=== PATIENT | male | born 1975 | race Caucasian/White ===

== ENCOUNTER 2023-04-04 11:16 | Observation (INO) ==
[2023-04-04] MEDS ORDERED: SODIUM CHLORIDE 0.9% 500 ML IV STA (11:30)
--- NOTE | 2023-04-04 11:40 | Emergency Department Note ---
Impression & Plan Acute lower GI bleeding ADMIT ED Provider Note HPI: The patient is a 48-year-old gentleman who presents the emergency department with a chief complaint of lower abdominal cramping and lightheadedness over the past several days. Patient states he had a colonoscopy on Thursday and he has had dark stools ever since. He states they did take several biopsies when he had his colonoscopy. On arrival here to the ED the patient is hemodynamically stable, he is in no acute distress on my initial assessment, he states just over about the past 2 hours he developed some lower abdominal pain bilaterally. He states he contacted the on-call gastroenterology service today and was advised to come to the emergency department to be evaluated for potential bleeding status post colonoscopy. Patient denies any chest pain or shortness of breath, he is otherwise well-appearing on my initial assessment, blood pressure is 102/67 on arrival. ROS: - Per HPI *Outpatient medications and allergy history reviewed. *Pertinent external medical records reviewed. PE: General: Alert HEENT: Normocephalic, trachea midline Eyes: Extraocular eye movement is intact, no scleral erythema Pulmonary: Clear to auscultation bilaterally, no wheezing Cardio: Regular rate and rhythm GI: Abdomen is soft to palpation, rectal examination performed at the bedside does not show any evidence of external hemorrhoids or gross bleeding, occult stool testing is positive : No suprapubic tenderness MSK: No evidence of trauma or malformation of the extremities, no edema Skin: No evidence of rash Neuro: Alert, no focal deficits Psychiatric: Cooperative laundromat manager: (As interpreted by myself): - An order was placed for continuous cardiac monitoring - Patient was noted to be in sinus rhythm with a rate of 80 EKG: (As interpreted by myself): Rate: 76 Rhythm: Normal sinus rhythm Intervals: Within normal limits ST changes: No ST elevation Time: 1409 Interventions provided in ED: -IV fluid bolus, IV Protonix drip and bolus Differential Diagnosis: Lower GI bleed, arrhythmia, bowel perforation status post colonoscopy, hemorrhage of biopsy site from esophagus, amongst other potential pathologies. Medical Decision Making: The patient is a 48-year-old gentleman who presented to the emergency department with variety of symptoms after undergoing colonoscopy on 04/01. On arrival here to the ED the patient is hemodynamically stable, he is currently in no acute dis tress. IV was established and lab work obtained, patient was maintained on flight engineer performance qualified. Patient was given IV fluid bolus, lab work results show leukocytosis with white blood cell count at 13.75, hemoglobin is low at 9.8, platelet count is within normal limits, CMP shows mild hyponatremia for which the patient was given IV fluids, BUN is also elevated at 32, lipase is within normal limits, otherwise no critical electrolyte abnormalities are noted. CT imaging of the abdomen pelvis was obtained that shows no evidence of bowel perforation, scattered air-fluid levels are noted throughout the small bowel consistent with physiologic state versus enteritis/illness. Occult stool testing was performed and is positive. Given the patient's anemia with occult positive stool, I did discuss case with on-call gastroenterology, Dr. Daniels, who recommends admission and GI consultation to determine whether or not the patient may require repeat colonoscopy if his hemoglobin continues to drop. Will not transfuse at this time as patient is hemodynamically stable and anemia is not less than 8.0. He was placed on Protonix bolus and drip, case was discussed with the on-call hospitalist, Dr. Lang, and the patient was placed for admission in stable condition. Consultants: -Gastroenterology, Dr. Daniels -Hospitalist service, Dr. Lang Disposition discussion held by myself with: Patient Diagnosis: 1. Lower GI bleed, acute 2. Anemia, acute, secondary to blood loss 3. Elevated BUN 4. Leukocytosis, acute, nonspecific 5. Hyponatremia, acute Disposition: Admission Altaf Jett DO Emergency Medicine Past Med/Surg History Medical History COBY (acute kidney injury) Alcohol abuse quit 4 weeks ago > (previous 5-6 rum and cokes daily) Arthritis Complex renal cyst CVA (cerebral vascular accident) age 38 > ASA for this > no neuro > no known cause > no residual effects, MRI a year ago, no signs of even having it Electrolyte abnormality Erectile dysfunction GERD (gastroesophageal reflux disease) Hiatal hernia History of COVID-20 Oct 2020 > not hospitalized HTN (hypertension) IBS (irritable bowel syndrome) Palpitations follows with Dr. Enciso Seizure Jul 2022 > convulsive > unknown cause, had severe sinus infection at the same time, PCP thinks it was related, ER ([facility]) thinks alcohol withdrawal?? but had not yet been 24 hrs since last drink > no meds, dc'ed from neuro Surgical History History of ankle surgery left History of tonsillectomy S/P reconstruction procedure right arm Family History Mother Diabetes Father Coronary heart disease Heart disease COPD (chronic obstructive pulmonary disease) Grandmother (Maternal) No problems noted. 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 Beliefs That Will Affect Care: None Current Living Situation: Spouse Feels Safe at Home: Yes Assistive Devices: None Allergies Allergies Allergy/AdvReac Type Severity Reaction Status Date / Time No Known Allergies Allergy Verified 04/01/23 09:32 Home Meds Home Medications Medication Instructions Recorded Confirmed amlodipine 2.5 mg tablet 2.5 mg PO QAM 02/05/23 04/01/23 aspirin 81 mg tablet,delayed 81 mg PO QAM 02/05/23 04/01/23 release (Adult Low Dose Aspirin) atorvastatin 20 mg tablet 20 mg PO QAM 02/05/23 04/01/23 gabapentin 300 mg capsule 300 mg PO BID 02/05/23 04/01/23 hydralazine 10 mg tablet 10 mg PO BID 02/05/23 04/01/23 lisinopril 30 mg tablet 30 mg PO QAM 02/05/23 04/01/23 magnesium oxide 500 mg tablet 500 mg PO DIRECTED 02/05/23 04/01/23 metoprolol succinate 50 mg 50 mg PO BID 02/05/23 04/01/23 tablet,extended release 24 hr potassium chloride 10 mEq 30 meq PO BID 02/05/23 04/01/23 tablet,extended release pantoprazole 40 mg tablet,delayed 40 mg PO QAM 03/26/23 04/01/23 release Results & Data (ED) Vital Signs Vital Signs - 24 hr 04/04/23 11:21 04/04/23 11:30 04/04/23 12:09 Temperature 36.3 C L Temperature Source Temporal Artery Scan Pulse Rate 102 H 85 83 Pulse Rate from SpO2 Sensor Respiratory Rate 23 Blood Pressure 102/67 Blood Pressure Mean 78 Pulse Oximetry 100 98 Oxygen Delivery Method Room Air Room Air Sepsis Recent Fever Within 48 Hours No Sepsis New/Unexplained Change in Mental Status No Sepsis Action Taken by Nursing No Action Required 04/04/23 12:10 04/04/23 12:30 Temperature Temperature Source Pulse Rate 81 85 Pulse Rate from SpO2 Sensor 80 Respiratory Rate 23 Blood Pressure Blood Pressure Mean Pulse Oximetry 99 Oxygen Delivery Method Sepsis Recent Fever Within 48 Hours Sepsis New/Unexplained Change in Mental Status Sepsis Action Taken by Nursing Laboratory Data 04/04/23 12:09 04/04/23 12:09 Lab Results 04/04/23 04/04/23 04/04/23 Range/Units 12:09 12:09 12:50 WBC 13.75 H (4.8-10.8) K/ul RBC 3.13 L (4.70-6.10) M/uL Hgb 9.8 L (14.0-18.0) g/dl Hct 29.0 L (42.0-52.0) % MCV 92.7 (80.0-100.0) fL MCH 31.3 (25.0-34.0) pg MCHC 33.8 (32.0-36.0) g/dL RDW Std Deviation 43.5 (36.4-46.3) fL RDW Coeff of Sandhya 12.9 (11.5-14.5) % Plt Count 312 (130-400) K/uL MPV 9.5 (9.4-12.4) fL Immature Gran % (Auto) 0.7 % Neut % (Auto) 76.1 % Lymph % (Auto) 14.3 % [place] % (Auto) 7.2 % Eos % (Auto) 0.9 % Baso % (Auto) 0.8 % Neut # (Auto) 10.48 H (1.40-6.50) K/uL Lymph # (Auto) 1.96 (1.2-3.4) K/uL [place] # (Auto) 0.99 H (0.11-0.59) K/uL Eos # (Auto) 0.12 (0-0.50) K/uL Baso # (Auto) 0.11 (0-0.2) K/uL Immature Gran # (Auto) 0.09 (0.01-0.20) K/uL Sodium 130 L (136-145) mmol/L Potassium 4.9 (3.5-5.1) mmol/L Chloride 100 (98-107) mmol/L Carbon Dioxide 24 (21-32) mmol/L Anion Gap 6 (3-11) BUN 32 H (6-23) mg/dl Creatinine 1.30 (0.6-1.4) mg/dl Est Cr Clr Drug Dosing 68.0 ml/min Est GFR ( Amer) 73.7 ml/min Est GFR (Non-Af Amer) 63.6 ml/min BUN/Creatinine Ratio 24.6 H (10-20) Glucose 104 H (70-99(Fasting)) mg/dl Calcium 9.8 (8.6-10.3) mg/dl Total Bilirubin 0.6 (0.2-1.0) mg/dl AST 10 L (13-39) U/L ALT 6 L (7-52) U/L Alkaline Phosphatase 58 (34-104) U/L Total Protein 6.5 (6.0-8.3) gm/dl Albumin 3.9 (3.4-5.0) gm/dl Globulin 2.6 (2.5-4.0) gm/dl Albumin/Globulin Ratio 1.5 (0.9-2) Lipase 57 (11-82) U/L Blood Type O Positive Antibody Screen NEGATIVE Administered Medications Discontinued Medications Sodium Chloride (Nss) 500 mls @ 999 mls/hr IV .Q31M STA Stop: 04/04/23 12:00 Last Admin: 04/04/23 12:08 Dose: 999 mls/hr Documented By: DEBORAH Ioversol (Optiray 320 500ml) 85 ml IV ONCE ONE Stop: 04/04/23 13:18 Last Admin: 04/04/23 13:17 Dose: 85 ml Documented By: PRADEEP Imaging Data Radiologist's Impression: Abdomen/Pelvis CT 04/04/23 11:[address] WITH IV CONTRAST CT DOSE: 1099.73 mGy.cm HISTORY: Acute lower abdominal pain Lower abdominal pain, recent colonoscopy TECHNIQUE: Multiaxial CT images of the abdomen and pelvis were performed following the IV administration of 85 cc of Optiray, A dose lowering technique was utilized adhering to the principles of ALARA. COMPARISON STUDY: None. FINDINGS: Coronary artery calcifications. No acute process of the imaged lower chest. There is no pneumatosis or pneumoperitoneum. Unremarkable spleen, pancreas, gallbladder and liver. Mild thickening of the adrenal glands suggestive of hyperplasia. Patency of the hepatic and portal veins. Unremarkable kidneys. No hydronephrosis. Prostatomegaly. Urinary bladder wall thickening with partial distention. Atherosclerosis of the aorta without aneurysm. No lymphadenopathy. No bowel obstruction or bowel wall thickening. Scattered large and small bowel air-fluid levels. Mild colonic diverticulosis. Noninflamed appendix. Small fat filled periumbilical hernias. Unremarkable soft tissues. 30% anterosuperior endplate compression at L1 without retropulsion. Small chronic-appearing superior endplate is noted at T12. IMPRESSION: 1. No bowel obstruction or bowel wall thickening. 2. No pneumoperitoneum. 3. Scattered small and bowel air-fluid levels may be physiologic or represent a nonspecific enteritis/diarrheal illness versus ileus. 4. L1 compression deformity is technically age indeterminate, however favored to be benign. ACT 112: Negative or not required by law. The above report was generated using voice recognition software. It may contain grammatical, syntax or spelling errors. Electronically signed by: Manuel Perez M.D. 04/04/2023 1:31 PM Discharge Plan Visit Data Chief Complaint: Abdominal Pain Stated Complaint: BLOOD IN STOOL, ABD PAIN ED Provider: Altaf Jett Discharge Problem: Acute lower GI bleeding Forms Stand Alone Forms: My [facility] Prescriptions Prescriptions: No Action amlodipine 2.5 mg tablet 2.5 mg PO QAM aspirin [Adult Low Dose Aspirin] 81 mg tablet,delayed release (DR/EC) 81 mg PO QAM atorvastatin 20 mg tablet 20 mg PO QAM gabapentin 300 mg capsule 300 mg PO BID hydralazine 10 mg tablet 10 mg PO BID lisinopril 30 mg tablet 30 mg PO QAM magnesium oxide 500 mg tablet 500 mg PO DIRECTED metoprolol succinate 50 mg tablet extended release 24 hr 50 mg PO BID potassium chloride 10 mEq tablet extended release 30 meq PO BID pantoprazole 40 mg tablet,delayed release (DR/EC) 40 mg PO QAM Referrals Referrals: Alannah Sheets DO [Primary Care Provider] -
[2023-04-04 12:26] LABS: Basophils # (auto) 0.11 K/uL (0-0.2); Basophils % (auto) 0.8 %; Eosinophils # (auto) 0.12 K/uL (0-0.50); Eosinophils % (auto) 0.9 %; Hemoglobin 9.8 g/dl (14.0-18.0); Immature Granulocytes # (auto) 0.09 K/uL (0.01-0.20); Immature Granulocytes % (auto) 0.7 %; Lymphocytes # (auto) 1.96 K/uL (1.2-3.4); Lymphocytes % (auto) 14.3 %; Mean Corpuscular Hemoglobin 31.3 pg (25.0-34.0); Mean Corpuscular Hgb Conc 33.8 g/dL (32.0-36.0); Mean Corpuscular Volume 92.7 fL (80.0-100.0); Mean Platelet Volume 9.5 fL (9.4-12.4); Monocytes # (auto) 0.99 K/uL (0.11-0.59); Monocytes % (auto) 7.2 %; Neutrophils # (auto) 10.48 K/uL (1.40-6.50); Neutrophils % (auto) 76.1 %; Platelet Count 312 K/uL (130-400); RDW Coefficient of Variation 12.9 % (11.5-14.5); RDW Standard Deviation 43.5 fL (36.4-46.3); Red Blood Count 3.13 M/uL (4.70-6.10); White Blood Count 13.75 K/ul (4.8-10.8)
[2023-04-04 12:35] LABS: Albumin Globulin Ratio 1.5 (0.9-2); Albumin Level 3.9 gm/dl (3.4-5.0); BUN Creatinine Ratio 24.6 (10-20); Bilirubin,Total 0.6 mg/dl (0.2-1.0); Calcium 9.8 mg/dl (8.6-10.3); Est GFR (African American) 73.7 ml/min; Est GFR (Non-African American) 63.6 ml/min; Globulin 2.6 gm/dl (2.5-4.0); Potassium 4.9 mmol/L (3.5-5.1); Total Protein 6.5 gm/dl (6.0-8.3)
[2023-04-04] MEDS ORDERED: OPTIRAY 320 500ml IV ONE (13:17)
--- NOTE | 2023-04-04 13:34 | CT Scan Report ---
ABDOMEN AND PELVIS CT WITH IV CONTRAST CT DOSE: 1099.73 mGy.cm HISTORY: Acute lower abdominal pain Lower abdominal pain, recent colonoscopy TECHNIQUE: Multiaxial CT images of the abdomen and pelvis were performed following the IV administrat ion of 85 cc of Optiray, A dose lowering technique was utilized adhering to the principles of ALARA. COMPARISON STUDY: None. FINDINGS: Coronary artery calcifications. No acute process of the imaged lower chest. There is no pne umatosis or pneumoperitoneum. Unremarkable spleen, pancreas, gallbladder and liver. Mild thickening o f the adrenal glands suggestive of hyperplasia. Patency of the hepatic and portal veins. Unremarkable kidneys. No hydronephrosis. Prostatomegaly. Urinary bladder wall thickening with partial distention. Atherosclerosis of the aorta without aneurysm. No lymphadenopathy. No bowel obstruction or bowel wall thickening. Scattered large and small bowel air-fluid levels. Mild colonic diverticulosis. Noninflamed appendix. Small fat filled periumbilical hernias. Unremarkable s oft tissues. 30% anterosuperior endplate compression at L1 without retropulsion. Small chronic-appear ing superior endplate is noted at T12. IMPRESSION: 1. No bowel obstruction or bowel wall thickening. 2. No pneumoperitoneum. 3. Scattered small and bowel air-fluid levels may be physiologic or represent a nonspecific enteritis /diarrheal illness versus ileus. 4. L1 compression deformity is technically age indeterminate, however favored to be benign. ACT 112: Negative or not required by law. The above report was generated using voice recognition software. It may contain grammatical, syntax o r spelling errors. Electronically signed by: Manuel Perez M.D. 04/04/2023 1:31 PM
[2023-04-04] MEDS ORDERED: PANTOPRAZOLE BOLUS/DRIP 1 EACH IV STA (13:58)
[2023-04-04] MEDS ORDERED: PANTOprazole 80 MG in DEXTROSE 5% 100 ML IV ONE (13:58)
[2023-04-04] MEDS: PANTOprazole 40 MG in DEXTROSE 5% 100 ML IV SCH ×2 (14:24→19:15)
[2023-04-04 14:45] LABS: Appearance Urine Clear (Clear); Bilirubin Urine Negative (Negative); Blood Urine Negative (Negative); Color Urine Yellow; Glucose Urine UA Negative (Negative); Ketones Urine Negative (Negative); Leukocyte Esterase Urine Negative (Negative); Nitrite Urine Negative (Negative); Protein Urine Negative (Negative); Specific Gravity Urine 1.031 (1.000-1.030); Urobilinogen Urine Negative (Negative)
--- NOTE | 2023-04-04 14:56 | History & Physical Report ---
Date of Service April 04, 2023 Assessment & Plan (1) Acute lower GI bleeding: Plan: Suspect from recent procedures IV pantoprazole bolus and drip Clear liquids, NPO at midnight (2) Acute blood loss anemia: Plan: Hgb 13 in January per outside labs, currently 9.8 Aim Hgb > 8 in setting of acute bleeding CBC q6h (3) Dizziness: Plan: Suspect due to hypotension in setting of GI bleed. Holding anti-hypertensives as below. (4) HTN (hypertension): Plan: BP currently low normal. Discontinue hydralazine and amlodipine Ok to continue lisinopril and metoprolol with hold parameters (5) CVA (cerebral vascular accident): Plan: History of such Hold aspirin - defer to GI when to restart this. Continue statin Plan VTE Prophylaxis - chemical contraindicated Diet - clear liquids, NPO @ midnight Disposition - observation status Admission and Anticipated Discharge Date Admission Date: April 04, 2023 History of Present Illness Chief Complaint: GI bleed Primary Care Provider: Alannah Sheets DO Bryce Huitron is a 48 year old male who presents to the ER with acute gastrointestinal bleeding status post upper endoscopy and colonoscopy performed on April 01 (3 days ago). Noticed bleeding started yesterday with black stool and bright red blood in stool. No abdominal pain, nausea or vomtiing. Today having dizziness on standing. No chest pain or shortness of breath. Allergies Allergy/AdvReac Type Severity Reaction Status Date / Time No Known Allergies Allergy Verified 04/04/23 15:07 Home Medications Medication Instructions Recorded Confirmed Type amlodipine 2.5 mg tablet 2.5 mg PO QAM 02/05/23 04/04/23 History aspirin 81 mg tablet,delayed 81 mg PO QAM 02/05/23 04/04/23 History release (Adult Low Dose Aspirin) atorvastatin 20 mg tablet 20 mg PO QAM 02/05/23 04/04/23 History gabapentin 300 mg capsule 300 mg PO BID 02/05/23 04/04/23 History hydralazine 10 mg tablet 10 mg PO BID 02/05/23 04/04/23 History lisinopril 30 mg tablet 30 mg PO QAM 02/05/23 04/04/23 History magnesium oxide 500 mg tablet 0 mg PO DIRECTED 02/05/23 04/04/23 History metoprolol succinate 50 mg 50 mg PO BID 02/05/23 04/04/23 History tablet,extended release 24 hr potassium chloride 10 mEq 30 meq PO BID 02/05/23 04/04/23 History tablet,extended release pantoprazole 40 mg tablet,delayed 40 mg PO QAM 03/26/23 04/04/23 History release Past Med/Surg History Medical History COBY (acute kidney injury) Alcohol abuse quit 4 weeks ago > (previous 5-6 rum and cokes daily) Arthritis Complex renal cyst CVA (cerebral vascular accident) age 38 > ASA for this > no neuro > no known cause > no residual effects, MRI a year ago, no signs of even having it Electrolyte abnormality Erectile dysfunction GERD (gastroesophageal reflux disease) Hiatal hernia History of COVID-20 Oct 2020 > not hospitalized HTN (hypertension) IBS (irritable bowel syndrome) Palpitations follows with Dr. Enciso Seizure Jul 2022 > convulsive > unknown cause, had severe sinus infection at the same time, PCP thinks it was related, ER dr ([facility]) thinks alcohol withdrawal?? but had not yet been 24 hrs since last drink > no meds, dc'ed from neuro Surgical History History of ankle surgery left History of tonsillectomy S/P reconstruction procedure right arm Family History Mother Diabetes Father Coronary heart disease Heart disease COPD (chronic obstructive pulmonary disease) Grandmother (Maternal) No problems noted. Grandmother Cancer Grandfather Cancer Uncle Cancer Denies family history of Crohn's disease Colorectal cancer Ulcerative colitis Social History Smoking Status: Current every day smoker Tobacco Type: Cigarettes Age Started Using Tobacco: 19; packs per day: 1; Cigarettes Per Day: 20-30; Second Hand Exposure: No; Do You Dip or Chew Tobacco: No; Hx Alcohol Use: No Hx Substance Use: No Preferred Language: Lao Communication Ability: Effective Restorative Care Technician Required: No Beliefs That Will Affect Care: None Current Living Situation: Spouse Other Information That Helps Us Care for You: No Feels Safe at Home: Yes Safety Concerns: Feels Safe At This Time Assistive Devices: Glasses Assistive Devices Comment: readers Review of Systems Review of Systems: All systems reviewed & are unremarkable except as noted in HPI & below Physical Exam Constitutional: WD/WN, vitals as above Eyes: + anicteric sclerae; normal pupil size ENMT: external ear and nose normal, oropharynx normal Respiratory: normal respiratory effort, lungs clear to auscultation Cardiovascular: RRR, no murmur, no edema Gastrointestinal (Abdomen): normal bowel sounds, soft, nontender, no hepatosplenomegaly Musculoskeletal: no cyanosis or clubbing, extremities motor strength 5/5 Skin: no rashes, warm and dry Neurologic: moves all extremities and awake; not confused Psychiatric: A+Ox3, euthymic affect Results & Data Results & Data Vital Signs (Past 12 Hours) Vital Signs Temp Pulse Resp BP Pulse Ox O2 Del Method 04/04/23 12:30 85 04/04/23 12:10 81 23 99 04/04/23 12:09 83 23 04/04/23 11:30 85 98 Room Air 04/04/23 11:21 36.3 C L 102 H 102/67 100 Room Air Laboratory Results Abnormal lab results 04/04/23 04/04/23 04/04/23 Range/Units 12:09 12:09 14:21 WBC 13.75 H (4.8-10.8) K/ul RBC 3.13 L (4.70-6.10) M/uL Hgb 9.8 L (14.0-18.0) g/dl Hct 29.0 L (42.0-52.0) % Neut # (Auto) 10.48 H (1.40-6.50) K/uL Andrews # (Auto) 0.99 H (0.11-0.59) K/uL Sodium 130 L (136-145) mmol/L BUN 32 H (6-23) mg/dl BUN/Creatinine Ratio 24.6 H (10-20) Glucose 104 H (70-99(Fasting)) mg/dl AST 10 L (13-39) U/L ALT 6 L (7-52) U/L Ur Specific Freedom 1.031 H (1.000-1.030) Diagnostic Findings ABDOMEN AND PELVIS CT WITH IV CONTRAST CT DOSE: 1099.73 mGy.cm HISTORY: Acute lower abdominal pain Lower abdominal pain, recent colonoscopy TECHNIQUE: Multiaxial CT images of the abdomen and pelvis were performed following the IV administration of 85 cc of Optiray, A dose lowering technique was utilized adhering to the principles of ALARA. COMPARISON STUDY: None. FINDINGS: Coronary artery calcifications. No acute process of the imaged lower chest. There is no pneumatosis or pneumoperitoneum. Unremarkable spleen, pancreas, gallbladder and liver. Mild thickening of the adrenal glands suggestive of hyperplasia. Patency of the hepatic and portal veins. Unremarkable kidneys. No hydronephrosis. Prostatomegaly. Urinary bladder wall thickening with partial distention. Atherosclerosis of the aorta without aneurysm. No lymphadenopathy. No bowel obstruction or bowel wall thickening. Scattered large and small bowel air-fluid levels. Mild colonic diverticulosis. Noninflamed appendix. Small fat filled periumbilical hernias. Unremarkable soft tissues. 30% anterosuperior endplate compression at L1 without retropulsion. Small chronic-appearing superior endplate is noted at T12. IMPRESSION: 1. No bowel obstruction or bowel wall thickening. 2. No pneumoperitoneum. 3. Scattered small and bowel air-fluid levels may be physiologic or represent a nonspecific enteritis/diarrheal illness versus ileus. 4. L1 compression deformity is technically age indeterminate, however favored to be benign. Medications Administered ER Medications Given: NSS 500ml bolus Pantoprazole 80mg IV bolus and drip ECG Rate (beats per minute): 76 Rhythm: normal sinus Findings: no acute ischemic change Comparison ECG Date: no prior available Code Status & VTE Plan Code Status Full VTE Prophylaxis Plan VTE Prophylaxis will be ordered: No PG Care Time/CCT Total # of Minutes Spent Total Time Spent with Patient: Total time spent is greater than 50% in coordination of care (as documented) at patient's floor/unit and/or counseling patient: Coding Level of Care Code 84076 INT INP/OBS CARE 2/55MIN Diagnoses Acute lower GI bleeding K92.2 Acute blood loss anemia D62 Dizziness R42 HTN (hypertension) I10 CVA (cerebral vascular accident) I63.9
[2023-04-04 15:02] LABS: Partial Thromboplastin Ratio 0.9; Partial Thromboplastin Time 25.4 Seconds (21.0-31.0); Prothrombin Time 10.8 Seconds (9.0-12.0)
--- NOTE | 2023-04-04 15:15 | Gastrointestinal Consultation ---
Date of Consultation April 04, 2023 Assessment & Plan (1) Acute lower GI bleeding: Sounds like he has a post polypectomy hemorrhage. Typically those present with multiple bloody stools on a frequent basis but his are "twice a day" with none in between. Makes me wonder about the rapidity of the bleed or if he bleed a few days ago and is just getting rid of the blood now. I would observe over night. If bleeding stops and h/h remain stable then no repeat exam will be needed. If he continues to bleed then will plan repeat colonoscopy History of Present Illness Reason for Consultation: rectal bleeding History of Present Illness 48 year old man who had EGD and colonoscopy on Thursday. Biopsy done in esophagus on EGD and four polyps removed from the ascending colon on colonos copy. Patient had held his aspirin before procedure but took it after his procedure on Thursday and since then. Did well on and then Thursday morning had black/bloody stools. [place] a little lightheaded but that went away. Able to work but then Thursday when he came home he had another bowel movement with dark blood mixed with stool. Did well over night and then this morning had another stool just as described before. Went to work but the lightheadedness never went away so he is being admitted. No BM since this morning. He has no abdominal pain. He does feel the urge to have a BM but doesn't go. Allergies Allergy/AdvReac Type Severity Reaction Status Date / Time No Known Allergies Allergy Verified 04/04/23 15:07 Home Medications Medication Instructions Recorded Confirmed Type amlodipine 2.5 mg tablet 2.5 mg PO QAM 02/05/23 04/04/23 History aspirin 81 mg tablet,delayed 81 mg PO QAM 02/05/23 04/04/23 History release (Adult Low Dose Aspirin) atorvastatin 20 mg tablet 20 mg PO QAM 02/05/23 04/04/23 History gabapentin 300 mg capsule 300 mg PO BID 02/05/23 04/04/23 History hydralazine 10 mg tablet 10 mg PO BID 02/05/23 04/04/23 History lisinopril 30 mg tablet 30 mg PO QAM 02/05/23 04/04/23 History magnesium oxide 500 mg tablet 0 mg PO DIRECTED 02/05/23 04/04/23 History metoprolol succinate 50 mg 50 mg PO BID 02/05/23 04/04/23 History tablet,extended release 24 hr potassium chloride 10 mEq 30 meq PO BID 02/05/23 04/04/23 History tablet,extended release pantoprazole 40 mg tablet,delayed 40 mg PO QAM 03/26/23 04/04/23 History release Patient History Medical History COBY (acute kidney injury) Alcohol abuse quit 4 weeks ago > (previous 5-6 rum and cokes daily) Arthritis Complex renal cyst CVA (cerebral vascular accident) age 38 > ASA for this > no neuro > no known cause > no residual effects, MRI a year ago, no signs of even having it Electrolyte abnormality Erectile dysfunction GERD (gastroesophageal reflux disease) Hiatal hernia History of COVID-20 Oct 2020 > not hospitalized HTN (hypertension) IBS (irritable bowel syndrome) Palpitations follows with Dr. Enciso Seizure Jul 2022 > convulsive > unknown cause, had severe sinus infection at the same time, PCP thinks it was related, ER dr ([facility]) thinks alcohol withdrawal?? but had not yet been 24 hrs since last drink > no meds, dc'ed from neuro Surgical History History of ankle surgery left History of tonsillectomy S/P reconstruction procedure right arm Family History Mother Diabetes Father Coronary heart disease Heart disease COPD (chronic obstructive pulmonary disease) Grandmother (Maternal) No problems noted. Grandmother Cancer Grandfather Cancer Uncle Cancer Denies family history of Crohn's disease Colorectal cancer Ulcerative colitis Social History Smoking Status: Current every day smoker Tobacco Type: Cigarettes Age Started Using Tobacco: 19; packs per day: 1; Cigarettes Per Day: 1-1.5 ppd; Second Hand Exposure: No; Do You Dip or Chew Tobacco: No; Hx Alcohol Use: No Hx Substance Use: No Preferred Language: Turkish Communication Ability: Effective Refrigeration Unit Repairer Required: No Beliefs That Will Affect Care: None Current Living Situation: Spouse Feels Safe at Home: Yes Assistive Devices: None Review of Systems Review of Systems: All systems reviewed & are unremarkable except as noted in HPI & below Physical Exam Constitutional: WD/WN, vitals as above no acute distress Eyes: PERRL, conjunctivae normal, anicteric sclerae ENMT: external ear and nose normal, oropharynx normal Neck: trachea midline, no thyromegaly Respiratory: normal respiratory effort, lungs clear to auscultation Cardiovascular: RRR, no murmur, no edema Gastrointestinal (Abdomen): normal bowel sounds, soft, nontender, no hepatosplenomegaly Musculoskeletal: Extremities: no cyanosis and no clubbing Skin: no rashes, warm and dry Neurologic: PERRL, EOMI, accommodation nl, no face palsy, no dysarthria Psychiatric: Orientation: alert and oriented x 3 Results & Data Vital Signs (Past 12 Hours) Vital Signs Temp Pulse Resp BP Pulse Ox O2 Del Method 04/04/23 14:50 83 19 04/04/23 14:46 108/67 04/04/23 14:46 69 18 04/04/23 14:40 69 22 04/04/23 14:30 69 18 04/04/23 14:10 91 H 19 04/04/23 14:00 75 18 98 04/04/23 13:50 77 21 100 04/04/23 13:40 78 14 98 04/04/23 13:30 84 15 04/04/23 13:24 19 04/04/23 13:10 69 19 97 04/04/23 13:00 71 18 97 04/04/23 12:50 90 20 99 04/04/23 12:40 83 17 99 04/04/23 12:30 79 21 98 04/04/23 12:20 78 15 95 04/04/23 12:30 85 04/04/23 12:10 81 23 99 04/04/23 12:09 83 23 04/04/23 11:30 85 98 Room Air 04/04/23 11:21 36.3 C L 102 H 102/67 100 Room Air Laboratory Results 04/04/23 04/04/23 04/04/23 12:09 12:09 12:09 WBC 13.75 H RBC 3.13 L Hgb 9.8 L Hct 29.0 L MCV 92.7 MCH 31.3 MCHC 33.8 RDW Std Deviation 43.5 RDW Coeff of Sandhya 12.9 Plt Count 312 MPV 9.5 Immature Gran % (Auto) 0.7 Neut % (Auto) 76.1 Lymph % (Auto) 14.3 [place] % (Auto) 7.2 Eos % (Auto) 0.9 Baso % (Auto) 0.8 Neut # (Auto) 10.48 H Lymph # (Auto) 1.96 [place] # (Auto) 0.99 H Eos # (Auto) 0.12 Baso # (Auto) 0.11 Immature Gran # (Auto) 0.09 PT 10.8 INR 1.0 APTT 25.4 PTT Ratio 0.9 Sodium 130 L Potassium 4.9 Chloride 100 Carbon Dioxide 24 Anion Gap 6 BUN 32 H Creatinine 1.30 Est Cr Clr Drug Dosing 68.0 Est GFR ( Amer) 73.7 Est GFR (Non-Af Amer) 63.6 BUN/Creatinine Ratio 24.6 H Glucose 104 H Calcium 9.8 Total Bilirubin 0.6 AST 10 L ALT 6 L Alkaline Phosphatase 58 Total Protein 6.5 Albumin 3.9 Globulin 2.6 Albumin/Globulin Ratio 1.5 Lipase 57 Urine Color Urine Appearance Urine pH Ur Specific [place] Urine Protein Urine Glucose (UA) Urine Ketones Urine Blood Urine Nitrite Urine Bilirubin Urine Urobilinogen Ur Leukocyte Esterase SARS-CoV-2, RNA, NAAT Blood Type Antibody Screen 04/04/23 04/04/23 04/04/23 12:50 14:21 14:21 WBC RBC Hgb Hct MCV MCH MCHC RDW Std Deviation RDW Coeff of Sandhya Plt Count MPV Immature Gran % (Auto) Neut % (Auto) Lymph % (Auto) [place] % (Auto) Eos % (Auto) Baso % (Auto) Neut # (Auto) Lymph # (Auto) [place] # (Auto) Eos # (Auto) Baso # (Auto) Immature Gran # (Auto) PT INR APTT PTT Ratio Sodium Potassium Chloride Carbon Dioxide Anion Gap BUN Creatinine Est Cr Clr Drug Dosing Est GFR ( Amer) Est GFR (Non-Af Amer) BUN/Creatinine Ratio Glucose Calcium Total Bilirubin AST ALT Alkaline Phosphatase Total Protein Albumin Globulin Albumin/Globulin Ratio Lipase Urine Color Yellow Urine Appearance Clear Urine pH 6.0 Ur Specific [place] 1.031 H Urine Protein Negative Urine Glucose (UA) Negative Urine Ketones Negative Urine Blood Negative Urine Nitrite Negative Urine Bilirubin Negative Urine Urobilinogen Negative Ur Leukocyte Esterase Negative SARS-CoV-2, RNA, NAAT NEGATIVE Blood Type O Positive Antibody Screen NEGATIVE Diagnostic Findings Abdomen/Pelvis CT 04/04/23 11:[address] WITH IV CONTRAST CT DOSE: 1099.73 mGy.cm HISTORY: Acute lower abdominal pain Lower abdominal pain, recent colonoscopy TECHNIQUE: Multiaxial CT images of the abdomen and pelvis were performed following the IV administration of 85 cc of Optiray, A dose lowering technique was utilized adhering to the principles of ALARA. COMPARISON STUDY: None. FINDINGS: Coronary artery calcifications. No acute process of the imaged lower chest. There is no pneumatosis or pneumoperitoneum. Unremarkable spleen, pancreas, gallbladder and liver. Mild thickening of the adrenal glands suggestive of hyperplasia. Patency of the hepatic and portal veins. Unremarkable kidneys. No hydronephrosis. Prostatomegaly. Urinary bladder wall thickening with partial distention. Atherosclerosis of the aorta without aneurysm. No lymphadenopathy. No bowel obstruction or bowel wall thickening. Scattered large and small bowel air-fluid levels. Mild colonic diverticulosis. Noninflamed appendix. Small fat filled periumbilical hernias. Unremarkable soft tissues. 30% anterosuperior endplate compression at L1 without retropulsion. Small chronic-appearing superior endplate is noted at T12. IMPRESSION: 1. No bowel obstruction or bowel wall thickening. 2. No pneumoperitoneum. 3. Scattered small and bowel air-fluid levels may be physiologic or represent a nonspecific enteritis/diarrheal illness versus ileus. 4. L1 compression deformity is technically age indeterminate, however favored to be benign. ACT 112: Negative or not required by law. The above report was generated using voice recognition software. It may contain grammatical, syntax or spelling errors. Electronically signed by: Manuel Perez M.D. 04/04/2023 1:31 PM
[2023-04-04 15:34] LABS: Magnesium 1.9 mg/dl (1.7-2.4)
[2023-04-04] MEDS ORDERED: ACETAMINOPHEN 325 MG TAB PO PRN (16:21)
[2023-04-04 18:42] LABS: Hematocrit (blood only) 27.1 % (42.0-52.0); Hemoglobin 9.1 g/dl (14.0-18.0); Mean Corpuscular Hemoglobin 31.4 pg (25.0-34.0); Mean Corpuscular Hgb Conc 33.6 g/dL (32.0-36.0); Mean Corpuscular Volume 93.4 fL (80.0-100.0); Mean Platelet Volume 9.3 fL (9.4-12.4); Platelet Count 271 K/uL (130-400); RDW Coefficient of Variation 12.8 % (11.5-14.5); RDW Standard Deviation 43.7 fL (36.4-46.3)
[2023-04-04] MEDS: POTASSIUM CHLORIDE 10 MEQ TABCR PO SCH (20:20)
[2023-04-04] MEDS: GABAPENTIN 300 MG CAP PO SCH (20:20)
[2023-04-04] MEDS ORDERED: MAGNESIUM OXIDE 400 MG TAB PO SCH (21:00)
[2023-04-04] MEDS: METOPROLOL SUCC 50MG EXT REL TAB PO SCH (21:06)
--- NOTE | 2023-04-04 22:38 | Hospitalist Progress Note ---
Date of Service April 04, 2023 Assessment & Plan (1) Acute lower GI bleeding: Plan: Suspect from recent procedures IV pantoprazole bolus and drip Clear liquids, NPO at midnight (2) Acute blood loss anemia: Plan: Hgb 13 in January per outside labs, currently 9.8 Aim Hgb > 8 in setting of acute bleeding CBC q6h (3) HTN (hypertension): Plan: BP currently low normal. Discontinue hydralazine and amlodipine Ok to continue lisinopril and metoprolol with hold parameters (4) CVA (cerebral vascular accident): Plan: History of such Hold aspirin - defer to GI when to restart this. Continue statin Plan VTE Prophylaxis - chemical contraindicated Diet - clear liquids, NPO @ midnight Disposition - observation status Admission and Anticipated Discharge Date Admission Date: April 04, 2023 Results & Data Results & Data Vital Signs (Past 12 Hours) Vital Signs Temp Pulse Pulse Resp BP BP Pulse Ox 04/04/23 22:09 78 104/58 L 04/04/23 20:00 96 H 96/62 L 04/04/23 16:50 04/04/23 16:23 36.6 C 76 16 107/70 99 04/04/23 16:10 71 04/04/23 15:34 04/04/23 15:30 71 20 04/04/23 15:30 107/62 04/04/23 15:20 72 17 04/04/23 15:10 84 28 H 04/04/23 15:01 100/45 L 04/04/23 15:01 82 18 04/04/23 15:00 83 21 04/04/23 14:50 83 19 04/04/23 14:46 108/67 04/04/23 14:46 69 18 04/04/23 14:40 69 22 04/04/23 14:30 69 18 04/04/23 14:10 91 H 19 04/04/23 14:00 75 18 98 04/04/23 13:50 77 21 100 04/04/23 13:40 78 14 98 04/04/23 13:30 84 15 04/04/23 13:24 19 04/04/23 13:10 69 19 97 04/04/23 13:00 71 18 97 04/04/23 12:50 90 20 99 04/04/23 12:40 83 17 99 04/04/23 12:30 79 21 98 04/04/23 12:20 78 15 95 04/04/23 12:30 85 04/04/23 12:10 81 23 99 04/04/23 12:09 83 23 04/04/23 11:30 85 98 04/04/23 11:21 36.3 C L 102 H 102/67 100 O2 Del Method 04/04/23 22:09 04/04/23 20:00 04/04/23 16:50 Room Air 04/04/23 16:23 Room Air 04/04/23 16:10 04/04/23 15:34 Room Air 04/04/23 15:30 04/04/23 15:30 04/04/23 15:20 04/04/23 15:10 04/04/23 15:01 04/04/23 15:01 04/04/23 15:00 04/04/23 14:50 04/04/23 14:46 04/04/23 14:46 04/04/23 14:40 04/04/23 14:30 04/04/23 14:10 04/04/23 14:00 04/04/23 13:50 04/04/23 13:40 04/04/23 13:30 04/04/23 13:24 04/04/23 13:10 04/04/23 13:00 04/04/23 12:50 04/04/23 12:40 04/04/23 12:30 04/04/23 12:20 04/04/23 12:30 04/04/23 12:10 04/04/23 12:09 04/04/23 11:30 Room Air 04/04/23 11:21 Room Air PG Care Time/CCT Total # of Minutes Spent Total Time Spent with Patient: Total time spent is greater than 50% in coordination of care (as documented) at patient's floor/unit and/or counseling patient: Coding Diagnoses Acute lower GI bleeding K92.2 Acute blood loss anemia D62 HTN (hypertension) I10 CVA (cerebral vascular accident) I63.9
[2023-04-05] MEDS: PANTOprazole 40 MG in DEXTROSE 5% 100 ML IV SCH ×4 (00:12→12:23)
[2023-04-05 00:42] LABS: Hematocrit (blood only) 27.7 % (42.0-52.0); Hemoglobin 9.3 g/dl (14.0-18.0); Mean Corpuscular Hemoglobin 31.2 pg (25.0-34.0); Mean Corpuscular Hgb Conc 33.6 g/dL (32.0-36.0); Mean Platelet Volume 9.5 fL (9.4-12.4); Platelet Count 274 K/uL (130-400); RDW Coefficient of Variation 12.8 % (11.5-14.5); RDW Standard Deviation 43.6 fL (36.4-46.3); Red Blood Count 2.98 M/uL (4.70-6.10); White Blood Count 13.32 K/ul (4.8-10.8)
[2023-04-05 07:29] LABS: Hematocrit (blood only) 28.3 % (42.0-52.0); Hemoglobin 9.6 g/dl (14.0-18.0); Mean Corpuscular Hemoglobin 31.7 pg (25.0-34.0); Mean Corpuscular Hgb Conc 33.9 g/dL (32.0-36.0); Mean Corpuscular Volume 93.4 fL (80.0-100.0); Mean Platelet Volume 9.5 fL (9.4-12.4); Platelet Count 321 K/uL (130-400); RDW Coefficient of Variation 12.9 % (11.5-14.5); RDW Standard Deviation 43.8 fL (36.4-46.3); Red Blood Count 3.03 M/uL (4.70-6.10); White Blood Count 9.81 K/ul (4.8-10.8)
[2023-04-05 07:49] LABS: BUN Creatinine Ratio 20.5 (10-20); Calcium 9.3 mg/dl (8.6-10.3); Creatinine Clr Calc Pharmacy 78.9 ml/min; Est GFR (African American) 88.3 ml/min; Est GFR (Non-African American) 76.2 ml/min; Potassium 4.4 mmol/L (3.5-5.1)
[2023-04-05] MEDS: METOPROLOL SUCC 50MG EXT REL TAB PO SCH (08:40)
[2023-04-05] MEDS: POTASSIUM CHLORIDE 10 MEQ TABCR PO SCH (08:41)
[2023-04-05] MEDS: GABAPENTIN 300 MG CAP PO SCH (08:41)
[2023-04-05] MEDS ORDERED: lisinopril 10 MG TAB PO SCH (09:00)
[2023-04-05] MEDS ORDERED: ATORVASTATIN 20 MG TAB PO SCH (09:00)
[2023-04-05] MEDS ORDERED: MAGNESIUM OXIDE 400 MG TAB PO SCH ×2 (09:00)
--- NOTE | 2023-04-05 09:35 | Gastroenterology Progress Note ---
Date of Service April 05, 2023 Assessment & Plan (1) Acute lower GI bleeding: Plan: He seems to have stopped bleeding and H/H are starting to come up. Okay with me to discharge today. He has an appt to see his GI on Thursday. Admission and Anticipated Discharge Date Admission Date: April 04, 2023 Subjective Feeling pretty good. No bowel movement yesterday or over night. Had one this morning that was black. Hgb 9.6 today which is up from 9.1 yesterday. Physical Exam Physical Exam: He looks well Results & Data Vital Signs (Past 12 Hours) Vital Signs Temp Pulse Resp BP Pulse Ox O2 Del Method 04/05/23 07:06 36.8 C 82 18 111/62 94 Room Air 04/04/23 23:05 36.7 C 79 16 94/59 L 98 Room Air 04/04/23 22:09 78 104/58 L Laboratory Results 04/05/23 04/05/23 04/05/23 Range/Units 06:41 06:41 00:14 WBC 9.81 13.32 H (4.8-10.8) K/ul RBC 3.03 L 2.98 L (4.70-6.10) M/uL Hgb 9.6 L 9.3 L (14.0-18.0) g/dl Hct 28.3 L 27.7 L (42.0-52.0) % MCV 93.4 93.0 (80.0-100.0) fL MCH 31.7 31.2 (25.0-34.0) pg MCHC 33.9 33.6 (32.0-36.0) g/dL RDW Std Deviation 43.8 43.6 (36.4-46.3) fL RDW Coeff of Sandhya 12.9 12.8 (11.5-14.5) % Plt Count 321 274 (130-400) K/uL MPV 9.5 9.5 (9.4-12.4) fL Immature Gran % (Auto) % Neut % (Auto) % Lymph % (Auto) % [place] % (Auto) % Eos % (Auto) % Baso % (Auto) % Neut # (Auto) (1.40-6.50) K/uL Lymph # (Auto) (1.2-3.4) K/uL [place] # (Auto) (0.11-0.59) K/uL Eos # (Auto) (0-0.50) K/uL Baso # (Auto) (0-0.2) K/uL Immature Gran # (Auto) (0.01-0.20) K/uL PT (9.0-12.0) Seconds INR (0.9-1.1) APTT (21.0-31.0) Seconds PTT Ratio Sodium 133 L (136-145) mmol/L Potassium 4.4 (3.5-5.1) mmol/L Chloride 105 (98-107) mmol/L Carbon Dioxide 22 (21-32) mmol/L Anion Gap 6 (3-11) BUN 23 (6-23) mg/dl Creatinine 1.12 (0.6-1.4) mg/dl Est Cr Clr Drug Dosing 78.9 ml/min Est GFR ( Amer) 88.3 ml/min Est GFR (Non-Af Amer) 76.2 ml/min BUN/Creatinine Ratio 20.5 H (10-20) Glucose 99 (70-99(Fasting)) mg/dl Calcium 9.3 (8.6-10.3) mg/dl Magnesium (1.7-2.4) mg/dl Total Bilirubin (0.2-1.0) mg/dl AST (13-39) U/L ALT (7-52) U/L Alkaline Phosphatase (34-104) U/L Total Protein (6.0-8.3) gm/dl Albumin (3.4-5.0) gm/dl Globulin (2.5-4.0) gm/dl Albumin/Globulin Ratio (0.9-2) Lipase (11-82) U/L Urine Color Urine Appearance (Clear) Urine pH (4.5-7.5) Ur Specific [place] (1.000-1.030) Urine Protein (Negative) Urine Glucose (UA) (Negative) Urine Ketones (Negative) Urine Blood (Negative) Urine Nitrite (Negative) Urine Bilirubin (Negative) Urine Urobilinogen (Negative) Ur Leukocyte Esterase (Negative) SARS-CoV-2, RNA, NAAT (NEGATIVE) Blood Type Antibody Screen 04/04/23 04/04/23 04/04/23 Range/Units 18:11 14:21 14:21 WBC 11.20 H (4.8-10.8) K/ul RBC 2.90 L (4.70-6.10) M/uL Hgb 9.1 L (14.0-18.0) g/dl Hct 27.1 L (42.0-52.0) % MCV 93.4 (80.0-100.0) fL MCH 31.4 (25.0-34.0) pg MCHC 33.6 (32.0-36.0) g/dL RDW Std Deviation 43.7 (36.4-46.3) fL RDW Coeff of Sandhya 12.8 (11.5-14.5) % Plt Count 271 (130-400) K/uL MPV 9.3 L (9.4-12.4) fL Immature Gran % (Auto) % Neut % (Auto) % Lymph % (Auto) % [place] % (Auto) % Eos % (Auto) % Baso % (Auto) % Neut # (Auto) (1.40-6.50) K/uL Lymph # (Auto) (1.2-3.4) K/uL [place] # (Auto) (0.11-0.59) K/uL Eos # (Auto) (0-0.50) K/uL Baso # (Auto) (0-0.2) K/uL Immature Gran # (Auto) (0.01-0.20) K/uL PT (9.0-12.0) Seconds INR (0.9-1.1) APTT (21.0-31.0) Seconds PTT Ratio Sodium (136-145) mmol/L Potassium (3.5-5.1) mmol/L Chloride (98-107) mmol/L Carbon Dioxide (21-32) mmol/L Anion Gap (3-11) BUN (6-23) mg/dl Creatinine (0.6-1.4) mg/dl Est Cr Clr Drug Dosing ml/min Est GFR ( Amer) ml/min Est GFR (Non-Af Amer) ml/min BUN/Creatinine Ratio (10-20) Glucose (70-99(Fasting)) mg/dl Calcium (8.6-10.3) mg/dl Magnesium (1.7-2.4) mg/dl Total Bilirubin (0.2-1.0) mg/dl AST (13-39) U/L ALT (7-52) U/L Alkaline Phosphatase (34-104) U/L Total Protein (6.0-8.3) gm/dl Albumin (3.4-5.0) gm/dl Globulin (2.5-4.0) gm/dl Albumin/Globulin Ratio (0.9-2) Lipase (11-82) U/L Urine Color Yellow Urine Appearance Clear (Clear) Urine pH 6.0 (4.5-7.5) Ur Specific [place] 1.031 H (1.000-1.030) Urine Protein Negative (Negative) Urine Glucose (UA) Negative (Negative) Urine Ketones Negative (Negative) Urine Blood Negative (Negative) Urine Nitrite Negative (Negative) Urine Bilirubin Negative (Negative) Urine Urobilinogen Negative (Negative) Ur Leukocyte Esterase Negative (Negative) SARS-CoV-2, RNA, NAAT NEGATIVE (NEGATIVE) Blood Type Antibody Screen 04/04/23 04/04/23 04/04/23 Range/Units 12:50 12:09 12:09 WBC (4.8-10.8) K/ul RBC (4.70-6.10) M/uL Hgb (14.0-18.0) g/dl Hct (42.0-52.0) % MCV (80.0-100.0) fL MCH (25.0-34.0) pg MCHC (32.0-36.0) g/dL RDW Std Deviation (36.4-46.3) fL RDW Coeff of Sandhya (11.5-14.5) % Plt Count (130-400) K/uL MPV (9.4-12.4) fL Immature Gran % (Auto) % Neut % (Auto) % Lymph % (Auto) % [place] % (Auto) % Eos % (Auto) % Baso % (Auto) % Neut # (Auto) (1.40-6.50) K/uL Lymph # (Auto) (1.2-3.4) K/uL [place] # (Auto) (0.11-0.59) K/uL Eos # (Auto) (0-0.50) K/uL Baso # (Auto) (0-0.2) K/uL Immature Gran # (Auto) (0.01-0.20) K/uL PT 10.8 (9.0-12.0) Seconds INR 1.0 (0.9-1.1) APTT 25.4 (21.0-31.0) Seconds PTT Ratio 0.9 Sodium 130 L (136-145) mmol/L Potassium 4.9 (3.5-5.1) mmol/L Chloride 100 (98-107) mmol/L Carbon Dioxide 24 (21-32) mmol/L Anion Gap 6 (3-11) BUN 32 H (6-23) mg/dl Creatinine 1.30 (0.6-1.4) mg/dl Est Cr Clr Drug Dosing 68.0 ml/min Est GFR ( Amer) 73.7 ml/min Est GFR (Non-Af Amer) 63.6 ml/min BUN/Creatinine Ratio 24.6 H (10-20) Glucose 104 H (70-99(Fasting)) mg/dl Calcium 9.8 (8.6-10.3) mg/dl Magnesium 1.9 (1.7-2.4) mg/dl Total Bilirubin 0.6 (0.2-1.0) mg/dl AST 10 L (13-39) U/L ALT 6 L (7-52) U/L Alkaline Phosphatase 58 (34-104) U/L Total Protein 6.5 (6.0-8.3) gm/dl Albumin 3.9 (3.4-5.0) gm/dl Globulin 2.6 (2.5-4.0) gm/dl Albumin/Globulin Ratio 1.5 (0.9-2) Lipase 57 (11-82) U/L Urine Color Urine Appearance (Clear) Urine pH (4.5-7.5) Ur Specific [place] (1.000-1.030) Urine Protein (Negative) Urine Glucose (UA) (Negative) Urine Ketones (Negative) Urine Blood (Negative) Urine Nitrite (Negative) Urine Bilirubin (Negative) Urine Urobilinogen (Negative) Ur Leukocyte Esterase (Negative) SARS-CoV-2, RNA, NAAT (NEGATIVE) Blood Type O Positive Antibody Screen NEGATIVE 04/04/23 Range/Units 12:09 WBC 13.75 H (4.8-10.8) K/ul RBC 3.13 L (4.70-6.10) M/uL Hgb 9.8 L (14.0-18.0) g/dl Hct 29.0 L (42.0-52.0) % MCV 92.7 (80.0-100.0) fL MCH 31.3 (25.0-34.0) pg MCHC 33.8 (32.0-36.0) g/dL RDW Std Deviation 43.5 (36.4-46.3) fL RDW Coeff of Sandhya 12.9 (11.5-14.5) % Plt Count 312 (130-400) K/uL MPV 9.5 (9.4-12.4) fL Immature Gran % (Auto) 0.7 % Neut % (Auto) 76.1 % Lymph % (Auto) 14.3 % [place] % (Auto) 7.2 % Eos % (Auto) 0.9 % Baso % (Auto) 0.8 % Neut # (Auto) 10.48 H (1.40-6.50) K/uL Lymph # (Auto) 1.96 (1.2-3.4) K/uL [place] # (Auto) 0.99 H (0.11-0.59) K/uL Eos # (Auto) 0.12 (0-0.50) K/uL Baso # (Auto) 0.11 (0-0.2) K/uL Immature Gran # (Auto) 0.09 (0.01-0.20) K/uL PT (9.0-12.0) Seconds INR (0.9-1.1) APTT (21.0-31.0) Seconds PTT Ratio Sodium (136-145) mmol/L Potassium (3.5-5.1) mmol/L Chloride (98-107) mmol/L Carbon Dioxide (21-32) mmol/L Anion Gap (3-11) BUN (6-23) mg/dl Creatinine (0.6-1.4) mg/dl Est Cr Clr Drug Dosing ml/min Est GFR ( Amer) ml/min Est GFR (Non-Af Amer) ml/min BUN/Creatinine Ratio (10-20) Glucose (70-99(Fasting)) mg/dl Calcium (8.6-10.3) mg/dl Magnesium (1.7-2.4) mg/dl Total Bilirubin (0.2-1.0) mg/dl AST (13-39) U/L ALT (7-52) U/L Alkaline Phosphatase (34-104) U/L Total Protein (6.0-8.3) gm/dl Albumin (3.4-5.0) gm/dl Globulin (2.5-4.0) gm/dl Albumin/Globulin Ratio (0.9-2) Lipase (11-82) U/L Urine Color Urine Appearance (Clear) Urine pH (4.5-7.5) Ur Specific [place] (1.000-1.030) Urine Protein (Negative) Urine Glucose (UA) (Negative) Urine Ketones (Negative) Urine Blood (Negative) Urine Nitrite (Negative) Urine Bilirubin (Negative) Urine Urobilinogen (Negative) Ur Leukocyte Esterase (Negative) SARS-CoV-2, RNA, NAAT (NEGATIVE) Blood Type Antibody Screen
[2023-04-05 12:10] LABS: Hematocrit (blood only) 27.9 % (42.0-52.0); Hemoglobin 9.6 g/dl (14.0-18.0); Mean Corpuscular Hemoglobin 31.7 pg (25.0-34.0); Mean Corpuscular Hgb Conc 34.4 g/dL (32.0-36.0); Mean Corpuscular Volume 92.1 fL (80.0-100.0); Mean Platelet Volume 9.3 fL (9.4-12.4); Platelet Count 302 K/uL (130-400); RDW Coefficient of Variation 12.8 % (11.5-14.5); RDW Standard Deviation 42.8 fL (36.4-46.3); Red Blood Count 3.03 M/uL (4.70-6.10); White Blood Count 9.29 K/ul (4.8-10.8)
--- NOTE | 2023-04-05 13:55 | Discharge Summary ---
Date of Service April 05, 2023 Admission HPI Per Admitting Provider Bryce Huitron is a 48 year old male who presents to the ER with acute gastrointestinal bleeding status post upper endoscopy and colonoscopy performed on April 01 (3 days ago). Noticed bleeding started yesterday with black stool and bright red blood in stool. No abdominal pain, nausea or vomtiing. Today having dizziness on standing. No chest pain or shortness of breath. Principal Diagnosis GI bleed Discharge Exam Constitutional WD/WN, vitals as above Eyes + anicteric sclerae; normal pupil size ENMT external ear and nose normal, oropharynx normal Respiratory normal respiratory effort, lungs clear to auscultation Cardiovascular RRR, no murmur, no edema Gastrointestinal (Abdomen) normal bowel sounds, soft, nontender, no hepatosplenomegaly Musculoskeletal no cyanosis or clubbing, extremities motor strength 5/5 Skin no rashes, warm and dry Neurologic moves all extremities and awake; not confused Psychiatric A+Ox3, euthymic affect Orientation: alert and oriented x 3 Discharge Data Allergies Allergy/AdvReac Type Severity Reaction Status Date / Time No Known Allergies Allergy Verified 04/08/23 13:46 Consultations 04/04/23 13:58 Consult Gastroenterology Routine 04/04/23 14:54 ED Decision to Admit Stat Ordered Studies 04/04/23 11:38 CT Abd and Pelvis [CT abd pelvis IV con only] Stat Hospital Course (1) Acute lower GI bleeding: Suspect from recent procedures treated with IV pantoprazole bolus and drip Clear liquids, will advance as tolerated. Hemoglobin was stable the following day. Patient reports he has been abstainging from alcohol. will discharge on meds noted below. (2) Acute blood loss anemia: Hgb 13 in January per outside labs, currently 9.8 Aim Hgb > 8 in setting of acute bleeding Hemoglobin stable, patient will followup with GI within 1 week. (3) Dizziness: Suspect due to hypotension in setting of GI bleed. Holding anti-hypertensives as below. (4) HTN (hypertension): BP currently low normal. Discontinue hydralazine and amlodipine Ok to continue lisinopril and metoprolol with hold parameters (5) CVA (cerebral vascular accident): History of such Hold aspirin - defer to GI when to restart this. Continue statin Plan VTE Prophylaxis - chemical contraindicated Diet - clear liquids Total Time Total Time Spent Total Time Spent (In Minutes): 32 Discharge Plan Discharge Items Patient Disposition: Home - Self-Care Reason For Visit: ACUTE BLOOD LOSS ANEMIA Discharge Diagnosis: anemia Activity: As commented below Non-emergency contact: Primary Care Provider Call non-emergency contact if: you have any medication questions Follow-up/Referrals: Alannah Sheets DO [Primary Care Provider] - Diet: Regular Diet Texture: Dental soft (bite-sized) Diet Comment: as below Addtl Attending Provider Instructions: Good afternoon Mr Huitron, Given that you were admitted with a GI bleed. Here are some important points. 1. Medication management: We will be increasing your pantoprazole to twice a day instead of once a day.. This will help protect your stomach by limiting acid production. We will also be adding sucralfate for 4 weeks, this will also help protect your stomach lining. 2. Diet modifications: Recommend a soft or bland diet initially to allow the gastrointestinal tract to heal. Please avoid spicy, acidic, or greasy foods that could irritate the stomach. Encourage small, frequent meals to reduce strain on the digestive system. 3. Fluid intake: Please continue to stay hydrated by consuming an adequate amount of fluids. Water, herbal tea, and clear liquids can be beneficial. However, we advise to avoid alcohol and caffeine as these can worsen gastrointestinal irritation. 4. Activity level: Encourage you to gradually increase their activity level but to avoid strenuous activities or heavy lifting initially. It's important to str brice a balance between rest and gentle movement to aid in recovery. 5. Signs of bleeding: Look out for signs of recurrent bleeding, such as black, tarry stools, vomiting blood, or experiencing lightheadedness. Please seek immediate medical attention if these symptoms occur. 6. Follow-up appointments: Keep your followup appointment with the agriculture instructor. Also followup with your PCP in 1-2 weeks. 7. Lifestyle modifications: Please discuss with your PCP lifestyle changes that can help prevent future GI bleeds, such as quitting smoking, reducing alcohol consumption, managing stress, and maintaining a healthy weight. I will also provide information on abstaining from alcohol. 1. Set a clear goal: Determine why you want to abstain from alcohol and establis h a specific timeframe or long-term commitment to guide your efforts. 2. Seek support: Reach out to friends, family, or support groups who can offer encouragement and understanding during your journey. Having a strong support system can be instrumental in staying motivated. 3. Avoid triggers: Identify situations or environments that typically lead to alcohol consumption and try to avoid them. This could mean staying away from bars or parties where alcohol is readily available. 4. Find alternative activities: Engage in hobbies, exercise, or other activities that can help occupy your time and provide a healthy distraction. It's important to fill the void left by alcohol with positive experiences. 5. Practice self-care: Focus on your physical and mental well-being. Get enough sleep, eat a balanced diet, and manage stress through relaxation techniques such as meditation or deep breathing exercises. 6. Celebrate small victories: Recognize and celebrate your progress along the way. Setting smaller milestones can help you stay motivated and reinforce the positive changes you're making. 7. Seek professional help if needed: Given that you have had withdrawal symptoms in the past, when you are ready to take this next step, please reach out to your Primary Care Provider. Remember, everyone's journey is unique, and it's essential to be patient and kind to yourself throughout the process. I wish you the best of luck, Kindest regards, Oscar Camp Pending Studies at Discharge: No Stand-Alone Forms: My [facility], Work/School Release, Smoking Cessation Medications and DC Order Prescriptions: New sucralfate [Carafate] 1 gram tablet 1 g PO ACHS 28 Days Qty: 28 0RF Continued atorvastatin 20 mg tablet 20 mg PO QAM gabapentin 300 mg capsule 300 mg PO BID magnesium oxide 500 mg tablet 0 mg PO DIRECTED Rx Instructions: Patient takes 1000mg by mouth in the morning and 500mg by mouth at night potassium chloride 10 mEq tablet extended release 30 meq PO BID Changed pantoprazole 40 mg tablet,delayed release (DR/EC) 40 mg PO BID Qty: 60 0RF Discontinued amlodipine 2.5 mg tablet 2.5 mg PO QAM aspirin [Adult Low Dose Aspirin] 81 mg tablet,delayed release (DR/EC) 81 mg PO QAM hydralazine 10 mg tablet 10 mg PO BID Discharge Orders: Discharge Order (Routine); Ordered 04/05/23 Ordered By: Oscar Lee/Other Patient Handouts: GI Bleeding Causes and Tests, ED Upper GI Bleeding (Stable) Admission Data Admit Date/Time: 04/04/23 14:22 Attending Provider: Oscar Camp Admit Provider: Emerson Lang Primary Care Provider: Alannah Sheets Other Providers: Eugene Daniels Jr ; Emerson Lang Other Interventions: Discharge Summary Assessment (RN) Last Done: 04/05/23 14:06 Coding Level of Care Code 82014 INP/OBS DISCH >30 MIN Diagnoses Acute lower GI bleeding K92.2 Acute blood loss anemia D62 Dizziness R42 HTN (hypertension) I10 CVA (cerebral vascular accident) I63.9
--- NOTE | 2023-04-06 21:24 | Electrocardiogram Report ---
Test Reason : Blood Pressure : / mmHG Vent. Rate : 076 BPM Atrial Rate : 076 BPM P-R Int : 174 ms QRS Dur : 082 ms QT Int : 374 ms P-R-T Axes : 038 022 018 degrees QTc Int : 420 ms Normal sinus rhythm Normal ECG No previous ECGs available Confirmed by Santos Eli ([id number] on 04/06/2023 9:23:59 PM Referred By: REFERRED SELF Confirmed By:Santos Eli
== END 2023-04-05 14:50 | disposition home or self-care (01) ==
LOC: ED 11:16 → 3N 11:16 → SUATTDRO 14:22 → 3N 15:34